=== PATIENT | female | born 1950 | race Caucasian/White ===

== ENCOUNTER 2016-06-05 12:34 | Emergency (ER) ==
[2016-06-05] MEDS ORDERED: SODIUM CHLORIDE 1,000 ML IV STA (12:41)
[2016-06-05] MEDS ORDERED: NITROSTAT SL PRN (12:41)
[2016-06-05] MEDS ORDERED: ASPIRIN CHEWABLE PO STA (12:42)
[2016-06-05 12:45] VITALS: BP 160/94; TEMP 98.6; BMI 21.8
[2016-06-05 13:02] LABS: ABG BASE EXCESS -4 (-2.0-2.0); ABG PCO2 23.8 mmHg (35-45); ABG PH 7.514 (7.35-7.45)
[2016-06-05 13:03] LABS: ABG HCO3 19.2 (22.0-26.0); ABG TCO2 20 (22.0-28.0)
[2016-06-05 13:35] LABS: BASOPHILS % (AUTO) 0.3 % (0.0-3.0); EOSINOPHILS # (AUTO) 0.1 K/ul (0.0-0.7); HEMATOCRIT 39.9 % (37.0-47.0); IMMATURE GRANULOCYTE % (AUTO) 0.3 % (0.0-5.0); LYMPHOCYTES # (AUTO) 2.9 K/uL (0.60-3.4); LYMPHOCYTES % (AUTO) 37.4 (10.0-50.0); MEAN CORPUSCULAR HEMOGLOBIN 30.6 pg (27.0-31.0); MEAN CORPUSCULAR HGB CONC 35.1 (31.8-35.4); MEAN CORPUSCULAR VOLUME 87.3 fl (81.0-99.0); MONOCYTES # (AUTO) 0.5 K/uL (0.4-2.0); MONOCYTES % (AUTO) 5.9 (0-10); NEUTROPHILS # (AUTO) 4.3 K/ul (2.0-6.9); NEUTROPHILS % (AUTO) 55.1; PLATELET COUNT 203 10^3/uL (140-440); RED BLOOD COUNT 4.57 10^6/ul (4.20-5.40); WHITE BLOOD COUNT 7.75 K/ul (4.6-10.2)
--- NOTE | 2016-06-05 13:35 | DI ---
EXAM: Single frontal view of the chest HISTORY: Chest pain. COMPARISON: CT chest 11/10/2013 FINDINGS: Cardiomediastinal silhouette is normal. There is no pneumothorax or pleural effusion. Th ere is no consolidation, nodule or mass. The osseous structures are unremarkable. IMPRESSION: No acute cardiopulmonary process.
[2016-06-05 14:05] LABS: ALANINE AMINOTRANSFERASE 13 U/L (12-78); ALBUMIN 4.6 g/dL (3.4-5.0); ALBUMIN/GLOBULIN RATIO 1.59; ALKALINE PHOSPHATASE 63 U/L (53-141); ANION GAP 19.4; ASPARTATE AMINO TRANSFERASE 15 U/L (15-37); BILIRUBIN,TOTAL 0.51 mg/dL (0.00-1.20); BLOOD UREA NITROGEN 10 mg/dL (7-18); CALCIUM 9.9 mg/dL (8.2-10.2); CARBON DIOXIDE 22 mmol/L (23-31); CHLORIDE 104 mmol/L (98-107); CREATINE KINASE 49 U/L; GLUCOSE 93 mg/dL (82-115); POTASSIUM 3.4 mmol/L (3.5-5.10); SODIUM 142 mmol/L (136-145); TOTAL PROTEIN 7.5 g/dL (5.8-8.1)
--- NOTE | 2016-06-05 14:40 | ED.PDOC ---
General ED Provider: Dr. KARLENE JERONIMO JR Chief Complaint: Chest Pain Stated Complaint: sudden onset with heaviness to mid chest and some soa--felt like heart was beating out of chest--states face feels numb-very anxious on arrival--able to move all extremities--heaviness has lessened now[ End ] Time Seen by Physician: 19:01 Mode of Arrival: Wheelchair Information Source: Patient, Family Exam Limitations: No limitations Nursing and Triage Documentation Reviewed and Agree: No Review of Systems - Review Of Systems Constitutional: Reports: Malaise, Weakness Eyes: Reports: No symptoms Ears, Nose, Mouth, Throat: Denies: Mouth pain (numbness) Respiratory: Reports: Cough, Short of air Cardiac: Reports: Chest pain, Palpitations GI: Reports: No symptoms : Reports: No symptoms Musculoskeletal: Reports: No symptoms Skin: Reports: No symptoms Neurological: Reports: No symptoms Endocrine: Reports: No symptoms Hematologic/Lymphatic: Reports: No symptoms All Other Systems: Other Past Medical History - Past Medical History Endocrine: Reports: DM 2 Cardiovascular: Reports: Hypertension Respiratory: Reports: None Hematological: Reports: Anemia Gastrointestinal: Reports: None Genitourinary: Reports: None Neuro/Psych: Reports: Anxiety, Depression Musculoskeletal: Reports: Arthritis Cancer: Reports: None Last Menstrual Period: menopause - Surgical History General Surgical History: Reports: Unknown - Family History Family History: Reports: Unknown - Social History Smoking Status: Never smoker Hx Substance Use: No Alcohol Screening: None Physical Exam - Physical Exam Appearance: Ill-appearing Ill-appearing: Moderate Pain Distress: Moderate Eyes: JEMMA, EOMI, Conjunctiva clear ENT: Ears normal, Nose normal, Oropharynx normal Neck: Supple Respiratory: Airway patent, Breath sounds equal, Rhonchi Cardiovascular: RRR, Pulses normal, No rub, No murmur, Tachycardia GI/: Soft, Nontender, No masses, Bowel sounds normal Musculoskeletal: Normal strength, ROM intact, No edema (tingling hands feet and mouth - usual tingling in feet due to diabetes), No calf tenderness Skin: Warm, Dry, Normal color Neurological: Sensation intact, Motor intact, Reflexes intact Psychiatric: Anxious Interpretation - Radiology Interpretation Radiology Interpretation By: Radiologist Radiology Results: No acute changes Exam Interpreted: CXR Critical Care Note - Critical Care Note Total Time (mins): 20 Course - Course Hematology/Chemistry: 06/05/16 13:25 06/05/16 13:25 Orders, Labs, Meds: Lab Review 06/05/16 06/05/16 06/05/16 12:55 13:20 13:25 WBC 7.75 RBC 4.57 Hgb 14.0 Hct 39.9 MCV 87.3 MCH 30.6 MCHC 35.1 RDW Coeff of Ernesto 13.3 Plt Count 203 Immature Gran % (Auto) 0.3 Neut % (Auto) 55.1 Lymph % (Auto) 37.4 Petroleum % (Auto) 5.9 Eos % (Auto) 1.0 Baso % (Auto) 0.3 Immature Gran # (Auto) 0.0 Neut # 4.3 Lymph # 2.9 Petroleum # 0.5 Eos # 0.1 Baso # 0.0 D-Dimer (Manual) 353.58 Puncture Site R rad O2 Saturation 98.0 ABG pH 7.514 H* ABG pCO2 23.8 L ABG pO2 94.0 ABG HCO3 19.2 L ABG Total CO2 20 L ABG Base Excess -4 L Ovidio Test + FiO2 % 21.0 Sodium 142 Potassium 3.4 L Chloride 104 Carbon Dioxide 22 L Anion Gap 19.4 BUN 10 Creatinine 0.80 Estimated GFR (MDRD) 72.00 BUN/Creatinine Ratio 12.50 Glucose 93 Calcium 9.9 Total Bilirubin 0.51 AST 15 ALT 13 Alkaline Phosphatase 63 Total Creatine Kinase 49 Troponin I < 0.0100 B-Natriuretic Peptide 26 Total Protein 7.5 Albumin 4.6 Globulin 2.9 Albumin/Globulin Ratio 1.59 Orders Category Date Time Status ABG DRAW REQUEST Stat CARDIO 06/05/16 12:41 Completed EKG-(ED ONLY) Stat CARDIO 06/05/16 12:41 Completed ED STONEHAND APPLIED .ONCE EMERGENCY 06/05/16 12:41 Active ABG Stat LAB 06/05/16 12:55 Completed B-TYPE NATRIURETIC PEPTIDE Stat LAB 06/05/16 13:25 Completed CBC W/ AUTO DIFF Stat LAB 06/05/16 13:25 Completed COMPREHENSIVE METABOLIC PANEL Stat LAB 06/05/16 13:25 Completed CREATINE KINASE Stat LAB 06/05/16 13:25 Completed D-DIMER Stat LAB 06/05/16 13:20 Completed TROPONIN I Stat LAB 06/05/16 13:25 Completed Aspirin [Aspirin Chewable] MEDS 06/05/16 12:42 Discontinued 324 mg PO ONCE STA Nitroglycerin [Nitrostat] MEDS 06/05/16 12:41 Discontinued 0.4 mg SL Q5MIN X 3 DOSES PRN Sodium Chloride 0.9% [Sodium Chloride] 1,000 ml MEDS 06/05/16 12:41 Discontinued IV BOLUS CHEST, 1V AP ONLY Stat RADS 06/05/16 12:41 Completed Medications Discontinued Medications Generic Name Dose Route Start Last Admin Trade Name Maki PRN Reason Stop Dose Admin Aspirin 324 mg 06/05/16 12:42 06/05/16 13:09 Aspirin Chewable PO 06/05/16 12:43 243 mg ONCE STA Administration Sodium Chloride 1,000 mls @ 1,000 mls/hr 06/05/16 12:41 06/05/16 13:10 Sodium Chloride IV 06/05/16 13:40 1,000 mls/hr BOLUS STA Administration Nitroglycerin 0.4 mg 06/05/16 12:41 Nitrostat SL Q5MIN X 3 DOSES PRN Chest Pain Vital Signs: Temp Pulse Resp BP Pulse Ox 06/05/16 12:36 98.6 F 125 H 20 160/94 H 100 RASHMI Risk Score RASHMI Risk Score: Risk Score Odds of by 30D 0 0.1 (0.1-0.2) 1 0.3 (0.2-0.3) 2 0.4 (0.3-0.5) 3 0.7 (0.6-0.9) 4 1.2 (1.0-1.5) 5 2.2 (1.9-2.6) 6 3.0 (2.5-3.6) 7 4.8 (3.8-6.1) Departure - Departure Time of Disposition: 14:42 Disposition: HOME SELF-CARE Discharge Problem: Anxiety attack, Acute hyperventilation syndrome Instructions: Hyperventilation (ED), Generalized Anxiety Disorder (ED) Condition: Good Pt referred to PMD for follow-up: Yes Additional Instructions: call PMD for follow up recommend recheck within the next week consider cardiac evaluation return if symptoms recur Allergies/Adverse Reactions: Allergies No Known Allergies Allergy (Unverified 06/05/16 12:46) Home Medications: Ambulatory Orders Allopurinol 300 mg PO DAILY 06/05/16 Aspirin [Aspir-Low] 81 mg PO DAILY 06/05/16 Colchicine [Colcrys] 0.6 mg PO BID 06/05/16 Dicyclomine HCl 20 mg PO QID 06/05/16 Gabapentin 600 mg PO TID 06/05/16 Losartan Potassium 100 mg PO DAILY 06/05/16 Metformin HCl 1,000 mg PO BID 06/05/16 Metoprolol Tartrate [Lopressor] 50 mg PO BID 06/05/16 Trazodone HCl 50 mg PO DAILY 06/05/16 Venlafaxine HCl [Venlafaxine HCl ER] 37.5 mg PO DAILY 06/05/16
== END 2016-06-05 15:20 | disposition home or self-care (01) ==
LOC: ED 12:34
DX: F41.0 Panic disorder [episodic paroxysmal anxiety] (principal); R06.4 Hyperventilation; R06.02 Shortness of breath; E11.9 Type 2 diabetes mellitus without complications; I10 Essential (primary) hypertension; Z79.899 Other long term (current) drug therapy
CPT/HCPCS: 36415; 80053; 82550; 82803; 83880; 84484; 85025; 85379; 93005; 93010; 96360; 99283

== ENCOUNTER 2016-12-04 09:10 | Outpatient (CLI) | payer OTHER ==
--- NOTE | 2016-12-04 10:02 | DI ---
EXAM: Three views of the left foot HISTORY: Gout, pain TECHNIQUE: AP lateral, oblique views of the left foot were obtained. FINDINGS: No acute fractures are seen. There are no erosions. The soft tissues are normal. There i s mild loss of joint space and arthritis at the tarsal metatarsal articulation. IMPRESSION: No acute fractures are seen within the left foot. Mild arthritis of the midfoot.
--- NOTE | 2016-12-04 10:03 | DI ---
EXAM: RIGHT FOOT, 3 VIEWS HISTORY: Foot pain, gout FINDINGS / IMPRESSION: There are no periarticular erosions identified. Joints are grossly within n ormal limits. No definite soft tissue tophi. No fracture or joint effusion.
--- NOTE | 2016-12-04 10:03 | DI ---
EXAM: Three views of the left ankle. History: Left ankle pain, gout. Comparison: Left ankle radiograph 12/13/2012 Findings: No acute fracture or dislocation. Mild calcaneal enthesiopathy. Degenerative changes are seen at the mid foot with dorsal osteophytes. No erosive osseous changes. Impression: No acute osseous abnormality and no radiographic findings to suggest gout at the ankle.
== END 2016-12-04 09:11 | disposition home or self-care (01) ==
LOC: RAD 09:10
PROVIDERS: ATTEND Podiatrist
DX: M10.9 Gout, unspecified (principal); M79.604 Pain in right leg; M79.605 Pain in left leg
CPT/HCPCS: 36415; 84550